=== PATIENT | female | born 1955 | race Caucasian/White ===

== ENCOUNTER 2019-02-25 07:46 | Outpatient (CLI) | payer OTHER | END 2019-02-25 13:33 | disposition home or self-care (01) | LOC: NUCLEAR 07:46 | DX: I50.1 Left ventricular failure, unspecified (principal) ==

== ENCOUNTER 2019-07-14 07:16 | Outpatient (CLI) | payer OTHER | END 2019-07-14 07:19 | disposition home or self-care (01) | LOC: NUCLEAR 07:16 | DX: E21.0 Primary hyperparathyroidism (principal) | CPT/HCPCS: 78072; A9500 ==

== ENCOUNTER 2022-10-18 07:17 | Outpatient (CLI) | payer OTHER | END 2022-10-18 07:28 | disposition home or self-care (01) | LOC: NUCLEAR 07:17 | PROVIDERS: ATTEND Specialist | DX: E21.0 Primary hyperparathyroidism (principal) | CPT/HCPCS: 78072; A9500 ==

== ENCOUNTER → 2023-01-01 | Outpatient (CLI) | payer OTHER | END | disposition home or self-care (01) | LOC: SONOGRAMA 10:44 | PROVIDERS: ATTEND Pathology Anatomic Pathology & Clinical Pathology | DX: D34 Benign neoplasm of thyroid gland (principal); E04.9 Nontoxic goiter, unspecified; E22.1 Hyperprolactinemia ==